=== PATIENT | female | born 1985 | race Caucasian/White ===

== ENCOUNTER 2017-03-13 19:19 | Emergency (ER) | payer SELFPAY ==
[2017-03-13 20:54] VITALS: BP 116/75
--- NOTE | 2017-03-13 22:56 | Emergency Department Report ---
Abscess Boil HPI - HPI Chief Complaint: Skin/Abscess/Foreign Body Stated Complaint: SWELLING UNDER RT ARM Time Seen by Provider: 03/13/17 22:00 Duration: >1 Week (2 weeks) Location: Other (right axillary) History: No Fever, No Pain, No Purulent Drainage, No Numbness, No Foreign Body, No Previous History, No Insect Bite HPI: This is a 32-year-old female presents with a abscess to her right axillary. Patient states that she started to noticed this 2 weeks ago. Patient stated the past 2 weeks it is getting bigger. Patient denies any fever , chills, nausea vomiting, chest pain and shortness of breath. Patient denies taking any [id number] for this. Patient denies any pain or purulent drainage. SHe denies any drug allergies. Home Medications: Previous Rx's Medication Instructions Recorded Last Taken Type Cephalexin [Keflex] 500 mg PO BID 7 Days 03/13/17 Unknown Rx traMADol [Ultram] 50 mg PO Q6HR PRN #12 tablet 03/13/17 Unknown Rx Allergies/Adverse Reactions: Allergies Allergy/AdvReac Type Severity Reaction Status Date / Time No Known Allergies Allergy Verified 03/13/17 20:51 ED Review of Systems ROS: Stated complaint: SWELLING UNDER RT ARM Other details as noted in HPI Constitutional: denies: chills, fever Eyes: denies: eye pain, eye discharge, vision change ENT: denies: ear pain, throat pain Respiratory: denies: cough, shortness of breath, wheezing Cardiovascular: denies: chest pain, palpitations Endocrine: no symptoms reported Gastrointestinal: denies: abdominal pain, nausea, diarrhea Genitourinary: denies: urgency, dysuria, discharge Musculoskeletal: denies: back pain, joint swelling, arthralgia Skin: denies: rash, lesions Neurological: denies: headache, weakness, paresthesias Psychiatric: denies: anxiety, depression Hematological/Lymphatic: denies: easy bleeding, easy bruising ED Past Medical Hx - Past Medical History Previous Medical History?: No - Surgical History Past Surgical History?: No - Social History Smoking Status: Never Smoker Substance Use Type: None - Medications Home Medications: Home Medications Medication Instructions Recorded Confirmed Last Taken Type Cephalexin [Keflex] 500 mg PO BID 7 Days 03/13/17 Unknown Rx traMADol [Ultram] 50 mg PO Q6HR PRN #12 tablet 03/13/17 Unknown Rx ED Abscess Boil Physical Exam - Exam General: Vital signs noted. No distress. Alert and acting appropriately. Front/Back of Body, Lg (Color): 1 - Right axillary abscess. Size: 3 cm Exam: Yes Normal Neurologic Exam, Yes Normal Circulation, No Tenderness, No Fluctuance, No Surrounding Cellulites/Erythema, No Lymphangitis, No Crepitation , No Heart Murmur Exam: 3 cm abscess with signs of purulent. Patient denies tenderness to site. Negative warm to touch. Erythema present at site. I & D Note - I & D Note I & D Note: Under sterile procedure, I used Betadine to clean the area. I used 1% lidocaine with epi 1-200,000 with 26-gauge 1.5 inches. I used an 11 blade to make a incision about 2 cm. Purulent drainage noted. I then used 20 mL of normal saline to flush the area. Iodoform 1/4 used for packing. Patient saw procedure well. No signs of distress noted. ED Course Vital Signs 03/13/17 20:51 Temperature 98.7 F Pulse Rate 86 Respiratory 20 Rate Blood Pressure 116/75 O2 Sat by Pulse 100 Oximetry Critical care attestation.: If time is entered above; I have spent that time in minutes in the direct care of this critically ill patient, excluding procedure time. ED Medical Decision Making - Medical Decision Making Ed course: A 2-year-old female that presents with 3 cm abscess to her right axilla area 1- patient received Ultram by mouth in the ED 2- under sterile field, incision and drainage performed. Patient tolerated procedure well no signs of distress noted. 3- I instructed the patient to follow up with her primary care doctor in 3-5 days. 4- patient received Ultram and Keflex at the time of discharge. 5- I instructed the patient to return back to [facility] in 2 days for packing remnoval. I also instructed the patient to keep the area clean and dry for 24- 48 hours. 6- the time of discharge the patient does not toxic or ill appearance. No signs of distress noted. ED Disposition Clinical Impression: Encounter for incision and drainage procedure, Abscess Disposition: DISCHARGED TO HOME OR SELFCARE Is pt being admited?: No Does the pt Need Aspirin: No Condition: Stable Instructions: Abscess Incision and Drainage (ED), Tramadol (By mouth) Additional Instructions: Please follow up with the primary care doctor in 3-5 days. Take medication as prescribed. Do not use heavy machinery while taking Ultram due to sedation. If symptoms worsen such as fever, increased pus, redness, or worsening symptoms report back to emergency room. Prescriptions: Cephalexin [Keflex] 500 mg PO BID 7 Days traMADol [Ultram] 50 mg PO Q6HR PRN #12 tablet PRN Reason: Pain Referrals: PRIMARY CARE, [Primary Care Provider] - 3-5 Days Forms: Work/School Release Form(ED)
[2017-03-13] MEDS: MARCAINE 0.5% INFILTRATI NR (23:15)
[2017-03-13] MEDS: ULTRAM PO ONE (23:15)
== END 2017-03-13 23:34 | disposition home or self-care (01) ==
LOC: ED 19:19
DX: L02.411 Cutaneous abscess of right axilla (principal)
CPT/HCPCS: 99282

== ENCOUNTER 2017-03-15 22:49 | Emergency (ER) | payer SELFPAY ==
[2017-03-16 00:14] VITALS: BP 112/80
[2017-03-16] MEDS ORDERED: NORCO 5/325 PO ONE (01:31)
--- NOTE | 2017-03-16 02:35 | Emergency Department Report ---
HPI - General Chief Complaint: Laceration/Recheck/Suture Time Seen by Provider: 03/16/17 01:19 - HPI HPI: 32-year-old female presents today for wound check. Patient was seen here 2 days ago for an abscess of her right axillary region. The abscess was drained and packed. Patient denies any bleeding or drainage at this time. Denies fever , chills, nausea, vomiting, chest pain, shortness breath, abdominal pain. ED Past Medical Hx - Past Medical History Previous Medical History?: No - Surgical History Past Surgical History?: No - Social History Smoking Status: Never Smoker Substance Use Type: None - Medications Home Medications: Home Medications Medication Instructions Recorded Confirmed Last Taken Type Cephalexin [Keflex] 500 mg PO BID 7 Days 03/13/17 03/16/17 03/16/17 Rx traMADol [Ultram] 50 mg PO Q6HR PRN #12 tablet 03/13/17 03/16/17 Unknown Rx Sulfamethoxazole/Trimethoprim 1 each PO BID #10 tablet 03/16/17 Unknown Rx [Bactrim DS TAB] ED Review of Systems ROS: Stated complaint: WOUND CHECK Other details as noted in HPI Constitutional: denies: chills, fever, malaise Eyes: denies: eye pain ENT: denies: ear pain, throat pain, congestion Respiratory: denies: cough, shortness of breath, wheezing Cardiovascular: denies: chest pain, palpitations Endocrine: no symptoms reported Gastrointestinal: denies: abdominal pain, nausea, vomiting Neurological: denies: headache, weakness, numbness, paresthesias Physical Exam - Physical Exam Vital Signs: Vital Signs 03/16/17 00:09 Temperature 98.7 F Pulse Rate 86 Respiratory 16 Rate Blood Pressure 112/80 O2 Sat by Pulse 97 Oximetry Physical Exam: GENERAL: The patient is well-developed and well-nourished. Patient is in NAD. SKIN: 1 cm incision noted of right axillary region. Packing was removed. No active drainage or bleeding. Wound appears to be healing well. HEAD: Normocephalic. Atraumatic. CHEST/LUNGS: Clear to auscultation throughout. HEART/CARDIOVASCULAR: Regular rate and rhythm. No murmurs, rubs or gallops. ABDOMEN: Abdomen is soft, nontender. Bowel sounds normoactive. No guarding or rebound tenderness. EXTREMITIES: Peripheral pulses intact. Capillary refill less than 2 seconds. NEURO: Alert and oriented x 3. Normal gait. ED Course Vital Signs 03/16/17 00:09 Temperature 98.7 F Pulse Rate 86 Respiratory 16 Rate Blood Pressure 112/80 O2 Sat by Pulse 97 Oximetry ED Medical Decision Making - Lab Data Vital Signs 03/16/17 00:09 Temperature 98.7 F Pulse Rate 86 Respiratory 16 Rate Blood Pressure 112/80 O2 Sat by Pulse 97 Oximetry - Medical Decision Making 32-year-old female presents today for reevaluation of her incised abscess and packing. Packing was removed. Wound appears to be healing well and no signs of bleeding or drainage. Patient is in no acute distress at this time. She will be discharged home and is encouraged to follow up with a primary care provider. She is recommended to continue her use of Keflex. She will be sent home on Bactrim and is encouraged to return to the emergency room for any worsening symptoms. Critical care attestation.: If time is entered above; I have spent that time in minutes in the direct care of this critically ill patient, excluding procedure time. ED Disposition Clinical Impression: Abscess packing removal Disposition: DISCHARGED TO HOME OR SELFCARE Is pt being admited?: No Does the pt Need Aspirin: No Condition: Stable Instructions: Abscess (ED), Abscess Incision and Drainage (ED) Additional Instructions: Follow-up with primary care provider. Return to the emergency department if symptoms worsen. Prescriptions: Sulfamethoxazole/Trimethoprim [Bactrim DS TAB] 1 each PO BID #10 tablet Referrals: PRIMARY CARE [Primary Care Provider] - 3-5 Days [facility] [Outside] - 3-5 Days Forms: Work/School Release Form(ED), Accompanied Note Time of Disposition: 02:35
== END 2017-03-16 03:00 | disposition home or self-care (01) ==
LOC: ED 22:49
DX: Z48.00 Encounter for change or removal of nonsurgical wound dressing (principal)